=== PATIENT | male | born 1995 | race Caucasian/White ===

== ENCOUNTER 2023-10-23 09:04 | Emergency (ER) | payer OTHER, SELFPAY ==
[2023-10-23] VITALS (22 sets, daily range): BP systolic 131–175; BP diastolic 94–144; PULSE 92–102; RESP 14–22; TEMP 37.1; O2SAT 94–100; BMI 32.1
--- NOTE | 2023-10-23 09:39 | PC.PHAR ---
pt states he takes care of his own medications-pt states he takes adderall xr 20mg qam and lisinopril 20mg qam-pt states he [phone] states the last time they filled medications for the pt was april 2023 and states it was not adderall xr or lisinopril-also called [facility] [phone] states they havent filled those rxs either and not filled any kind of meds since 11/14/22-also called [facility] [phone] states not filled the entered medications for the pt either-ext doesnt show either medications filled
[2023-10-23] MEDS: ondansetron 2 mg/ML SDV 2 mL 4 MG IVP (09:45)
[2023-10-23] MEDS: sodium chloride 0.9% 1,000 ML 999 ML IV (09:45)
--- NOTE | 2023-10-23 10:01 | ED_ITS ---
HPI - Abdominal Pain 2 General: Chief Complaint: Abdominal Pain Stated Complaint: Abd Pain Time Seen by Provider: 10/23/23 09:37 Source: patient Mode of arrival: ambulatory History of Present Illness: 28-year-old male presents emergency room with epigastric abdominal pain onset around 3 or 330 this morning. 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 He has had kidney stones the past states that this does not feel like that he denies any hematuria dysuria urgency or frequency no chest pain or shortness of breath associated with no fever sweats or chills. MD elicited complaint: abdominal pain Onset (ago): hour(s) Pain Consistency: constant Location: Epigastric Severity: moderate Quality: cramping Migration to: RUQ Exacerbating factors: nothing Relieving factors: nothing Associated Symptoms: Reports GI cramping; Denies anorexia, belching, bloating, change in bowel habits, change in stool character, chills, coffee ground emesis, constipation, diarrhea, dyspepsia, dysuria, excessive flatus, fever(s), heartburn, hematochezia, hematuria, hematemesis, fecal incontinence, loose stools, melena, nausea, poor appetite, syncope and vomiting Review of Systems 2 Const: Denies: fever(s) or chills Card: Denies: chest pain or syncope Resp: Denies: dyspnea GI: Reports: GI cramping; Denies: abdominal pain, nausea, vomiting, hematemesis, coffee ground emesis, heartburn, diarrhea, constipation, bloating, belching, excessive flatus, fecal incontinence, change in bowel habits, change in stool character, hematochezia or melena : Denies: dysuria, urinary frequency, urinary urgency or hematuria Musc: Denies: neck pain or back pain Skin/Breast: Denies: rash Physical Exam 2 Const: GENERAL APPEARANCE: cooperative and comfortable O RIENTATION/CONSCIOUSNESS: Yes awake, Yes oriented to person, Yes oriented to place and Yes oriented to time HENMT: COMMON NORMALS: normocephalic, atraumatic and hearing grossly normal bilaterally HEAD & SCALP: normocephalic and atraumatic Resp: COMMON NORMALS: normal respiratory effort, No retractions, No use of accessory muscles and clear to auscultation bilaterally AUSCULTATION: clear to auscultation bilaterally Cardio: COMMON NORMALS: regular rate, regular rhythm and No murmurs present (Cardio) RATE: regular rate RHYTHM: regular rhythm GI: COMMON NORMALS: No hepatosplenomegaly present AUSCULTATION: Yes normoactive bowel sounds PALPATION: Yes Tenderness to palpation present (GI) (Epigastric predominantly right of the midline), No Guarding due to palpation present (GI) and Yes No hepatosplenomegaly present Extremity: COMMON NORMALS: normal to inspection, capillary refill normal, no clubbing, cyanosis or edema, no calf tenderness and no pedal edema Neuro: SENSORIUM/ORIENTATION: Yes oriented to person, Yes oriented to place and Yes oriented to time Skin: COMMON NORMALS: no rashes or lesions noted GENERAL SKIN EXAM: no rashes or lesions noted Course 2 Vital Signs: Vital signs: Vital Signs Temperature 98.8 F 10/23/23 09:16 Pulse Rate 92 10/23/23 09:37 Respiratory Rate 14 10/23/23 13:10 Blood Pressure 168/126 10/23/23 10:55 Pulse Oximetry 96 10/23/23 13:10 Oxygen Delivery Me thod Room Air 10/23/23 13:10 MDM - Abdominal Pain Medical Decision Making Labs and imaging reviewed no sign of active bleeding. Believe he is having severe reflux he is not on anything for stomach at this point start on Carafate to use as needed pantoprazole twice daily for 10 days then daily. Recheck if not improving if symptoms persist he will need to follow-up with his primary care doctor to evaluate if EGD is appropriate. Differential Diagnosis Likely abdominal pain, calculus of kidney, diverticulitis and small bowel obstruction Medical Records I reviewed the patient's medical records. Lab Data I reviewed the patient's lab results. 10/23/23 09:35 10/23/23 09:35 Labs/Radiology: Laboratory Results WBC 10.47 10^3/uL (3.29-11.43) 10/23/23 09:35 RBC 5.83 10^6/uL (3.85-5.65) H 10/23/23 09:35 Hgb 17.40 g/dL (11.27-16.99) H 10/23/23 09:35 Hct 49.9 % (37-53) 10/23/23 09:35 MCV 85.6 fl (82-101) 10/23/23 09:35 MCH 29.8 pg (27-33) 10/23/23 09:35 MCHC 34.9 g/dL (30-55) 10/23/23 09:35 RDW 12.0 % (12.1-15.1) L 10/23/23 09:35 Plt Count 332 10^3/cmm (157-399) 10/23/23 09:35 MPV 10.7 fL (7.4-10.4) H 10/23/23 09:35 Neut % (Auto) 74.1 % 10/23/23 09:35 Lymph % (Auto) 18.9 % 10/23/23 09:35 [place] % (Auto) 5.0 % 10/23/23 09:35 Eos % (Auto) 1.1 % 10/23/23 09:35 Baso % (Auto) 0.6 % 10/23/23 09:35 Neut # (Auto) 7.77 10^3/uL (1.8-7.7) H 10/23/23 09:35 Lymph # (Auto) 2.0 10^3/uL (0.8-4.8) 10/23/23 09:35 [place] # (Auto) 0.5 10^3/uL (0.2-0.9) 10/23/23 09:35 Eos # (Auto) 0.1 10^3/uL (0.0-0.8) 10/23/23 09:35 Baso # (Auto) 0.1 10^3/uL (0.0-0.1) 10/23/23 09:35 Nucleated RBC % (auto) 0 % 10/23/23 09:35 Nucleated RBCs # 0.0 /100WBC 10/23/23 09:35 Sodium 139 mmol/L (136-145) 10/23/23 09:35 Potassium 4.1 mmol/L (3.5-5.1) 10/23/23 09:35 Chloride 103 mmol/L (98-107) 10/23/23 09:35 Carbon Dioxide 21 mmol/L (22-29) L 10/23/23 09:35 Anion Gap 19.1 (5-19) H 10/23/23 09:35 BUN 10 mg/dL (6-20) 10/23/23 09:35 Creatinine 0.9 mg/dL (0.7-1.2) 10/23/23 09:35 GFR Calculation 99.1 mL/min (90-130) 10/23/23 09:35 Glucose 97 mg/dL (65-115) 10/23/23 09:35 Calculated Osmolality 287 mOsm/kg (285-295) 10/23/23 09:35 Calcium 9.7 mg/dL (8.5-10.5) 10/23/23 09:35 Total Bilirubin 0.8 mg/dL (0.15-1.2) 10/23/23 09:35 AST 18 U/L (0-40) 10/23/23 09:35 ALT 24 U/L (0-41) 10/23/23 09:35 Alkaline Phosphatase 98 U/L (40-130) 10/23/23 09:35 Total Protein 7.7 g/dL (6.6-8.7) 10/23/23 09:35 Albumin 4.8 g/dL (3.5-5.2) 10/23/23 09:35 Globulin 2.9 g/dL (1.3-4.6) 10/23/23 09:35 Lipase 28 U/L (13-60) 10/23/23 09:35 Urine Color Yellow (Yellow) 10/23/23 11:57 Urine Appearance Clear (CLEAR) 10/23/23 11:57 Urine pH 8 (5-7) H 10/23/23 11:57 Ur Specific [place] 1.010 (1.005-1.030) 10/23/23 11:57 Urine Protein Neg (Negative) 10/23/23 11:57 Urine Glucose (UA) Norm (Normal) 10/23/23 11:57 Urine Ketones Negative (Negative) 10/23/23 11:57 Urine Blood Neg (Negative) 10/23/23 11:57 Urine Nitrate Negative (Negative) 10/23/23 11:57 Urine Bilirubin Neg (Negative) 10/23/23 11:57 Prot Sulfosalicylic Acd Negative (Negative) 10/23/23 11:57 Urine Urobilinogen Norm mg/dL (Negative) 10/23/23 11:57 Ur Leukocyte Esterase Negative (Negative) 10/23/23 11:57 All radiology interpretation(s) finalized by discharge Discharge Plan Discharge Patient Disposition: Home Clinical Impression: Gastroesophageal reflux disease Condition: Stable Prescriptions: New Protonix 40 mg tablet,delayed release (DR/EC) 40 mg PO BID 10 Days Qty: 40 0RF Rx Instructions: Twice daily for 10 days then daily Carafate 1 gram tablet 1 g PO Q6H 10 Days Qty: 40 0RF No Action lisinopril 20 mg Tablet 20 mg PO QAM Adderall XR 20 mg Capsule,Extended Release 24hr 20 mg PO QAM Discharge Orders: Discharge ED (Routine); Ordered 10/23/23 Ordered By: Adin Harris Discharge Diet: As Directed Discharge Activity: Increase activity as tolerated Patient Instructions: Diet for Stomach Ulcers and Gastritis (ED), Gastroesophageal Reflux in Infants (ED), Opioid Safety, Pain Management Activity Restrictions/Additional Instructions: Thank you for choosing [facility] for your healthcare needs today. Please realize this is an emergency room and that we are providing you with a medical screening exam and this may not be complete and all inclusive of all the testing and or work up that you may need to determine your ailment or severity of your illness. It is very important that you follow up as instructed or that you return to the Emergency Department should you have concerns or if your condition changes or worsens in any way. Start on the Protonix twice daily for 10 days then once daily use Carafate as needed as needed follow-up with your doctor if not improving. Coding Level of Care Code ED Base Brander for Beena Alexander
[2023-10-23 10:11] LABS: Basophils # 0.1 10^3/uL (0.0-0.1); Basophils % 0.6 %; Eosinophils # 0.1 10^3/uL (0.0-0.8); Eosinophils % 1.1 %; Hematocrit 49.9 % (37-53); Lymphocytes % 18.9 %; Mean Corpuscular HGB Conc 34.9 g/dL (30-55); Mean Corpuscular Hemoglobin 29.8 pg (27-33); Mean Corpuscular Volume 85.6 fl (82-101); Mean Platelet Volume 10.7 fL (7.4-10.4); Monocytes # 0.5 10^3/uL (0.2-0.9); Neutrophils # 7.77 10^3/uL (1.8-7.7); Neutrophils % 74.1 %; Nucleated Red Blood Cells % 0 %; Platelet Count 332 10^3/cmm (157-399); Red Blood Count 5.83 10^6/uL (3.85-5.65); White Blood Count 10.47 10^3/uL (3.29-11.43)
[2023-10-23 10:36] LABS: Alanine Aminotransferase 24 U/L (0-41); Albumin Level 4.8 g/dL (3.5-5.2); Alkaline Phosphatase 98 U/L (40-130); Anion Gap 19.1 (5-19); Aspartate Amino Transferase 18 U/L (0-40); Blood Urea Nitrogen 10 mg/dL (6-20); Calcium 9.7 mg/dL (8.5-10.5); Carbon Dioxide 21 mmol/L (22-29); Chloride 103 mmol/L (98-107); Globulin 2.9 g/dL (1.3-4.6); Glomerular Filtration Rate 99.1 mL/min (90-130); Glucose 97 mg/dL (65-115); Lipase 28 U/L (13-60); Osmolality Calculated 287 mOsm/kg (285-295); Potassium 4.1 mmol/L (3.5-5.1); Sodium 139 mmol/L (136-145); Total Bilirubin 0.8 mg/dL (0.15-1.2); Total Protein 7.7 g/dL (6.6-8.7)
[2023-10-23] MEDS: lidocaine 2% viscous 15 ML, aluminum-mag hydrox-simethicon 30 ML, sucralfate oral liq 1 GM PO (12:13)
[2023-10-23 12:39] LABS: Add Urine Microscopic? NO; Charge for UA Resulting for Rev
[2023-10-23 12:58] LABS: Bilirubin Urine Neg (Negative); Blood Urine Neg (Negative); Glucose Urine UA Norm (Normal); Ketones Urine Negative (Negative); Leukocyte Esterase Urine Negative (Negative); Nitrate Urine Negative (Negative); Protein Urine Neg (Negative); Sulfosalicylic Acid Urine Negative (Negative); Urine Appearance Clear (CLEAR); Urine Color Yellow (Yellow); Urobilinogen Urine Norm (Negative); pH Urine 8 (5-7)
== END 2023-10-23 14:07 | disposition home or self-care (01) ==
PROVIDERS: Emergency Provider Family Medicine
DX: K21.9 Gastro-esophageal reflux disease without esophagitis (principal)
CPT/HCPCS: 80053; 81003; 83690; 85025; 96361; 96374; 99284; J2405; J7030